=== PATIENT | male | born 1990 | race Caucasian/White ===

== ENCOUNTER 2019-03-05 18:35 | Emergency (ER) | payer BC ==
[~2019-03-05] VITALS: Ht 188 cm; Wt 120.5 kg
[2019-03-05] MEDS ORDERED: LIDOCAINE 2% MDV 20 ML VIAL SC ONE (19:30)
[2019-03-05] MEDS ORDERED: KEFL500C17 PO (19:58)
[2019-03-05 20:12] VITALS: BP 117/70
[2019-03-05] MEDS ORDERED: ADACEL/BOOSTRIX VACCINE (DIPHTH/PERTUSS/ACELL/TETANUS)0.5ML SYR (90715) IM ONE (20:15)
== END 2019-03-05 20:36 | disposition home or self-care (01) ==
LOC: M ED 18:35
DX: S91.114A Laceration without foreign body of right lesser toe(s) without damage to nail, initial encounter (principal); X58.XXXA Exposure to other specified factors, initial encounter; Y92.9 Unspecified place or not applicable; Y93.9 Activity, unspecified; Y99.9 Unspecified external cause status; Z72.0 Tobacco use; Z88.5 Allergy status to narcotic agent

== ENCOUNTER 2020-02-18 02:57 | Emergency (ER) | payer BC, OTHER ==
[~2020-02-18] VITALS: Ht 188 cm; Wt 120.4 kg
[~2020-02-18 02:57] MED LIST: KEFL500C17 PO
[2020-02-18] MEDS ORDERED: NS 1,000 ML IV ONE (03:15)
[2020-02-18] MEDS ORDERED: ISOVUE-370 76% 100ML VIAL As Ordered ONE (03:18)
[2020-02-18 03:20] LABS: BASO # 0.1 10^3/uL (0.0-0.2); BASO % 0.5 % (0.0-1.0); EOS # 0.1 10^3/uL (0.0-0.5); EOS % 0.7 % (0.0-3.0); HEMATOCRIT 40.4 % (42.0-52.0); HEMOGLOBIN 13.9 g/dl (13.5-17.5); LYMPH # 1.3 10^3/uL (1.5-5.0); LYMPH % 14.1 % (24.0-44.0); MEAN CORPUSCULAR HEMOGLOBIN 29.1 pg (27.0-33.0); MEAN CORPUSCULAR HGB CONC 34.4 g/dl (32.0-36.5); MEAN CORPUSCULAR VOLUME 84.5 fl (80.0-96.0); MONO # 0.6 10^3/uL (0.0-0.8); MONO % 6.7 % (0.0-5.0); NEUTROPHILS # 7.2 10^3/uL (1.5-8.5); NEUTROPHILS % 76.6 % (36.0-66.0); PLATELET COUNT, AUTOMATED 275 10^3/uL (150-450); RED BLOOD COUNT 4.78 10^6/uL (4.30-6.10); WHITE BLOOD COUNT 9.4 10^3/uL (4.0-10.0)
[2020-02-18 03:45] LABS: ALT/SGPT 28 U/L (12-78); BILIRUBIN,DIRECT 0.1 MG/DL (0.0-0.2); BILIRUBIN,TOTAL 0.4 MG/DL (0.2-1.0); BLOOD UREA NITROGEN 13 MG/DL (7-18); CALCIUM LEVEL 8.3 MG/DL (8.5-10.1); CARBON DIOXIDE LEVEL 22 MEQ/L (21-32); CHLORIDE LEVEL 107 MEQ/L (98-107); CPK CREATINE PHOSPHOKINASE 560 U/L (39-308); CREATININE FOR GFR 1.28 MG/DL (0.70-1.30); ETHYL ALCOHOL (ETHANOL) 0.264 % (0.000-0.010); GLOMERULAR FILTRATION RATE > 60.0 (>60); GLUCOSE, FASTING 106 MG/DL (70-100); MB/CK RELATIVE INDEX 0.71 (< OR =4); POTASSIUM SERUM 3.8 MEQ/L (3.5-5.1); SODIUM LEVEL 140 MEQ/L (136-145); TOTAL PROTEIN 7.1 GM/DL (6.4-8.2); TROPONIN I < 0.02 NG/ML (< 0.10)
[2020-02-18] MEDS ORDERED: METAL LOCK LOOP XX ONE (04:01)
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
[2020-02-18 04:15] VITALS: BP 117/61
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
--- NOTE | 2020-02-18 06:59 | ECGEPIP ---
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
--- NOTE | 2020-02-22 09:30 | ED PDOC ---
Post-Departure Follow-Up certified letter sent to pt re formal read of ct chest for fu Karuna Berry MD Feb 22, 2020 09:30
== END 2020-02-18 04:50 | disposition left against medical advice (07) ==
LOC: EDBD 02:57 → M ED 02:57
DX: F10.129 Alcohol abuse with intoxication, unspecified (principal); Y90.1 Blood alcohol level of 20-39 mg/100 ml; S00.81XA Abrasion of other part of head, initial encounter; S00.83XA Contusion of other part of head, initial encounter; S80.211A Abrasion, right knee, initial encounter; V49.49XA Driver injured in collision with other motor vehicles in traffic accident, initial encounter; Y92.410 Unspecified street and highway as the place of occurrence of the external cause; Z88.5 Allergy status to narcotic agent; F17.210 Nicotine dependence, cigarettes, uncomplicated
CPT/HCPCS: 36415; 70450; 70486; 71260; 72125; 74177; 80047; 80048; 80076; 82550; 82553; 84484; 85025; 93005; 93041; 94760; 96360; 99285; G0480; Q9967

== ENCOUNTER 2021-07-02 18:12 | Emergency (ER) | payer BC, OTHER ==
[~2021-07-02] VITALS: Ht 185.4 cm; Wt 128.1 kg
[2021-07-02] MEDS ORDERED: diphenhydrAMINE 50MG/ML VIAL (J1200) IV STA (18:18)
[2021-07-02] MEDS ORDERED: methylPREDNISolone 125MG 2ML VIAL IV ONE (18:20)
[2021-07-02] MEDS ORDERED: FAMOTIDINE INJ 20MG/2ML VIAL (S0028 PER 1) IVP ONE (18:20)
[2021-07-02] MEDS ORDERED: NS 1,000 ML IV ONE ×3 (18:20→19:40)
[2021-07-02] MEDS ORDERED: FAMOTIDINE/NS 20 MG/50 ML BAG (S0028) As Ordered ONE (18:20)
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
--- OUTSIDE RECORDS SUMMARY | 2021-07-02 18:21 | CCD ---
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 .................. : DARIA BUSTILLOBY Acct Number.................. : [id number] ROOM. ................. : 112-1 MR Number ................... : [id number] Stay type ............. : O/P Discharge Date......... ... : Admit Date ......... : 12/20/20 Admit Phys .................... : MAGGI Date of ....... : 1990 Family Phys ................... : Phone .................. : [phone] Age ................................ : 30 Film# .................. .:[id number] Sex ................................. : M Unsigned transcriptions are preliminary reports and do not represent a medical or legal document GALLBLADDER [id number] COMPLETE:12/20/20 08:22 KNB [id number] Reason(s): RUQ Pain G ALLBLADDER ULTRASOUND: INDICATION: Right upper quadrant pain. FINDINGS: The liver is mildly heterogeneous in echotexture without discrete mass or biliary duct dilatation demonstrated. Evaluation of the gallbladder does not demonstrate calculi, wall thickening or pericholecystic fluid. The visualized proximal common bile duct is within normal limits, measuring 4 mm. The right kidney measures 10.8 cm in craniocaudal dimension. The kidneys are unremarkable in size and echotexture without cyst, mass or abnormality demonstrated. The pancreas is not well visualized. Limited visualization of the aorta and inferior vena cava does not demonstrate a discrete focal dilatation. IMPRESSION: No acute disease noted on the current study. Electronically Reviewed and Signed By Rigoberto Middleton MD , 12/21/20 15:20, AML Transcribe Initials: SINTIA , Transcribe Date: 12/20/20 16:28, Dictation Date: Copy for: EMERGENCY DEPT via mode Copy for: 710 MED REC Page 1 of 1 Name Value Range Interpretation Code Description Data Steffanie rce(s) Supporting Document(s) ID Date Data Source [id number] 01/05/2021 01:51:00 PM EDT [facility] Name Value Range Interpretation Code Description Data Steffanie rce(s) Supporting Document(s) HEROIN BLOOD [facility] _HEROIN BLOOD_ SEE SEPARATE REFE RENCE LAB REPORT ID Date Data Source [id number] 12/20/2020 07:22:00 AM EDT [facility] 1 OrderSheet [facility] Emergency Department [address] [place] [address] Phone #: ext- [phone] 12/20/2020 07:01 Patient: JOSE CRUZ Sex: M : 1990 Age: 30yWEIGHT:81.6 kg (S) HEIGHT:74 inches (S) BMI:23.1ALLERGIES: Morphine SulfateCHIEF COMPLAINT: abdominal painDIAGNOSIS: VomitingLAB ORDERSOrder Description Priority Entered Acknowledged InitialedCBC w Diff STAT 07:24 12/20/2020 07:29 Lashay Metz Jennifer Jennifer R.NFabian R.N.; Verbal order per; Morenita Wilson MDCMP STAT 07:24 12/20/2020 07:29 Lashay Metz Jenn ifer Jennifer R.NFabian R.N.; Verbal order per; Morenita Wilson MDLipase STAT 07:24 12/20/2020 07:29 Lashay Metz Jennifer Jennifer R.NFabian R.N.; Verbal order per; Morenita Wilson MDLactic Acid STAT 07:39 12/20/2020 07:52 Katie Metz Norma MD; Agnes RDillanLactic Acid STAT 10:46 12/20/2020 11:07 Morenita Kerr MD; flying instructorJose Maria [id number] [facility]H (Not STAT 12:27 12/20/2020 12:35 Sorbero,Symptomatic as Agnes Metz R.NFabianDefined by CDC) R.N.; Verbal order(12/20/2020) (First per; Dayo Wilson) (Hospitalized) (Not ) (NotResident inCongregate CareSetting) (NotEmployed inHealthcare Setting) 2 OrderSheet [facility] Emergency Department [address] [place] [address] Phone #: ext- [phone] 12/20/2020 07:01 Patient: JOSE CRUZ Sex: M : 1990 Age: 30yDIAGNOSTIC STUDY ORDERSOrder Description Priority Entered Acknowledged InitialedUS Gall Bladder STAT 07:39 12/20/2020 Ack'd: 07:52 07:59 Lashay,(Oxygen?(No)) Morenita Wilson MD; Agnes Metz R.N. R.NFabian Reason for Study: RUQ PainMEDICATION/IV/DRIP/FLUID ORDERSOrder Description Priority Entered Acknowledged InitialedNS IV 1000 mL 07:24 12/20/2020 07:30 Lashay,Bolus: : Bolus 1000 Agnes Metz RFabianNFabianmL (X1) R.N.; Verbal order per; Morenita Wilson MDZofran 4 mg IVP X 1 07:24 12/20/2020 07:30 Lashay,dose: 4 mg (NOW Agnes Metz RFabianNFabianx1) R.N.; Verbal order per; Morenita Wilson MDProtonix IV Push 40 07:39 12/20/2020 Ack'd: 07:53 07:59 Lashaymg (in 10 mL NS, Morenita Wilson MD; Agnes Metz R.N.administer over at R.N.least 2 minutes,NOW x1)Zofran IVP 4 mg 07:40 12/20/2020 Ack'd: 07:53 07:58 Katie Metz Norma MD; Agnes MetzNFabian R.N.IV NS 1000 mL 08:28 12/20/2020 Ack'd: 08:40 10:08 DorisBolus : Bolus 1000 Morenita Wilson MD; Agnes Metz RNmL (X1) R.N.Phenergan IV 25 08:35 12/20/2020 08:41 Lashay,mg (NOW x1, HIGH Morenita Wilson MD; Agnes AcostaALERTMEDICATION) Reason for ordering with alerts: Benefits outweigh risks -- 08:35 12/20/2020 Morenita Wilson MDHaldol IVP 2 mg 09:59 12/20/2020 10:08 Eileen(NOW x1) Morenita Wilson MD; Preet RNIV NS 1000 mL 11:29 12/20/2020 11:43 Sorbero,Bolus : Bolus 1000 Morenita Wilson MD; Arthur Acosta 3 OrderSheet [facility] Emergency Department [address] [place] [address] Phone #: ext- [phone] 12/20/2020 07:01 Patient: JOSE CRUZ Sex: M : 1990 Age: 30ymL (X1)GENERAL ORDERSOrder Description Priority Entered Acknowledged Initialed[Electronically signed by Arthur Emanuel R.N. (14:46 12/20/2020)][Electronically signed by Morenita Wilson MD (07:18 12/21/2020)][Electronically locked by Arthur Emanuel R.N. (14:46 12/20/2020)] Name Value Range Interpretation Code Description Data Steffanie rce(s) Supporting Document(s) ID Date Data Source [id number] 12/20/2020 07:22:00 AM EDT [facility] 1 Medication Reconciliation Report [facility] Emergency Department [address] [place] [address] Phone #: zdi- [phone] 12/20/2020 07:01 Patient: JOSE CRUZ Sex: M : 1990 Age: 30yWeight: 81.6 kgHeight/Length: 74 in.BMI: 23.1ALLERGIES: Morphine SulfateThe patient's Home Medications are listed below:NONE.The source(s) of the original Home Medication information:patientThe following Medications were given to the patient in the Emergency Department:NS [IV] IV Fluids bolus 1000 mL wide open, administered: 07:30 12/20/2020Zofran [IVP] IVP 4 mg, administered: 07:15 12/20/2020Zofran [IVP] IVP 4 mg, administered: 07:54 1PROTONIX [IVP] IVP 40 mg diluted in NS 10 mL, administered: 07:56 1PHENERGAN [IVP] IVP 25 mg diluted in NS 10 mL, administered: 08:41 12/20/2020HALDOL [IVP] IVP 2 mg, administered: 10:08 12/20/2020IV NS w/ bolus IV Fluids bolus 1000 mL over 1 hour(s), then 1000 mL/hr, administered: 10:08 12/20/2020NS [IV] IV Fluids bolus 0, then 1500 mL/hr, administered: 11:43 12/20/2020The following Medications were prescribed to the patient:None. Name Value Range Interpretation Code Description Data Steffanie rce(s) Supporting Document(s) ID Date Data Source [id number] 12/20/2020 07:22:00 AM EDT [facility] 1 Medication Administration Record [facility] Emergency Department [address] [place] [address] Phone #: ext- [phone] 12/20/2020 07:01 Patient: JOSE CRUZ Sex: M : 1990 Age: 30yWeight: 81.6 kgHeight/Length: 74 inBMI: 23.1ALLERGIES: Morphine Sulfate Date/Time Medication Administered Medication OrderedStart NS [IV] NS IV 1000 mL Bolus: : Bolus [id number] 12/20/2020 Dose: IV Fluids mL (X1)Agnes Metz R.N. Bolus: 1000 mL wide open---- Dispensed: 1000 mL bagStop Site: #1 left AC10:00 1Dtoñito Oviedo RNGiven ZOFRAN [IVP] (ONDANSETRON HCL) Zofran 4 mg IVP X 1 dose: 4 mg07:15 12/20/2020 Dose: 4 mg IVP (NOW x1)Agnes Metz R.N. Site: #1 left ACGiven PROTONIX [IVP] (PANTOPRAZOLE Protonix IV Push 40 mg (in 10 mL07:56 12/20/2020 SODIUM) NS, administer over at least 2PAgnes guerrier R.N. Dose: 40 mg IVP minutes, NOW x1) In: NS 10 mL Site: #1 left ACGiven ZOFRAN [IVP] (ONDANSETRON HCL) Zofran IVP 4 mg07:54 12/20/2020 Dose: 4 mg IVPPAgnes guerrier R.N. Site: #1 left ACStart IV NS W/ BOLUS IV NS 1000 mL Bolus : Bolus [id number] 12/20/2020 Dose: IV Fluids mL (X1)Eileen Oviedo RN Rate: 1000 mL/hr over 1 hour(s)---- Bolus: 1000 mL over 1 hour(s)Stop Dispensed: 1000 mL bag11:17 12/20/2020 Site: #2 left Arthur Melchor R.N.Given PHENERGAN [IVP] (PROMETHAZINE Phenergan IV 25 mg (NOW x1,08:41 12/20/2020 HCL) HIGH ALERT MEDICATION)Agnes Metz R.N. Dose: 25 mg IVP In: NS 10 mL Site: #1 left ACGiven HALDOL [IVP] (HALOPERIDOL Haldol IVP 2 mg (NOW x1)10:08 12/20/2020 LACTATE)Eileen Oviedo RN Dose: 2 mg IVP Site: #2 left handStart NS [IV] IV NS 1000 mL Bolus : Bolus [id number] 12/20/2020 Dose: IV Fluids mL (X1)Arthur Emanuel R.N. Rate: 1500 mL/hr over 40 minute(s)---- Dispensed: 1000 mL bagStop Site: #1 left AC12:35 12/20/2020Arthur ashby R.N. Name Value Range Interpretation Code Description Data Steffanie rce(s) Supporting Document(s) ID Date Data Source [id number] 12/20/2020 07:22:00 AM EDT [facility] 1 General Instructions [facility] Emergency Department [address] [place] [address] Phone #: ext [phone] 12/20/2020 07:01 Patient: JOSE CRUZ Sex: M : 1990 Age: 30yIntractable vomiting with nausea, dehydration and volume depletion.cyclic vomiting most likely due to marijuana use.(Electronically signed by Morenita Wilson MD 12/21/2020 07:18) Name Value Range Interpretation Code Description Data Steffanie rce(s) Supporting Document(s) ID Date Data Source [id number] 12/20/2020 07:22:00 AM EDT [facility] 1 Clinical Report - Nurses [facility] Emergency Department [address] [place] [address] Phone #: ext- [phone] 12/20/2020 07:01 Patient: JOSE CRUZ Sex: M : 1990 Age: 30yTRIAGEArrived by private vehicle. Historian: patient. Accompanied by friend.Triage time: late entry - 07:04 12/20/2020. Acuity: LEVEL 3.Chief Complaint: ABDOMINAL PAIN and VOMITING.Alert. No acute distress.This started yesterday. ( Pt states yesterday morning he started eating breakfast and vomited, and sincethen the vomiting has continued. Pt states he his vomiting a lot and is unable to keep anything down. Ptalso c/o epigastric abdominal pain.). The patient has had nausea and vomiting. The vomiting hasoccurred numerous times. ( Last BM last night and had diarrhea but "i always have diarrhea").Treatment LEGAL CLERK:(chewable antacids last dose 2 hours ago).SEPSIS SCREEN: SIRS SCREEN NEGATIVE. SEPSIS SCREEN NEGATIVE. No suspected or confirmedsigns of infection present. (07:11 12/20/2020). --07:11 12/20/20 Agnes Metz R.N.07:06 12/20/20. BP: 141/92. MAP: 108. HR: 75. RR: 20. O2 saturation: 100% on room air. Temp: 97.7 F(oral). Pain level now: 04/02. --07:11 12/20/20 Agnes Metz R.N.Weight: 81.6 kg stated. Height/Length: 74 inches Per Patient. BMI: 23.1. --07:03 12/20/20 Agnes Metz R.N.MedicationsNone. --07:08 12/20/20 Agnes Metz R.N.AllergiesMorphine Sulfate.(hives) --07:08 12/20/20 Agnes Metz R.N.PROBLEMS:"cyst in chest". --07:09 12/20/20 Agnes Metz R.N.Medication/allergy information source: the patient. --07:11 12/20/20 Agnes Metz R.N.ADDITIONAL SURGERIES:Jaw surgery. --07:09 12/20/20 Agnes Metz R.N.HistoryPAST MEDICAL HX: Immunizations: up-to-date. 2 Clinical Report - N buster [facility] Emergency Department [address] [place] [address] Phone #: ext- [phone] 12/20/2020 07:01 Patient: JOSE CRUZ Sex: M : 1990 Age: 30y SOCIAL HX: Current every day heavy tobacco smoker (cigarette)- less than 1 pack per day. Occasional alcohol use. No drug use. No recent travel. No known contact with a sick individual. The patient was offered HIV testing but declined. Patient education was provided. The patient was offered hepatitis C testing but declined. Patient education was provided. ( COVID screen negative). The patient has not traveled outside the [place] Infectious disease exposure: No infectious disease exposure. The patient was not exposed to Coronavirus. Mask placed on patient. Patient is not a known carrier of tuberculosis, hepatitis, HIV, MRSA or VRE. Patient is not a known carrier of CRE. SELF HARM ASSESSMENT: Self harm assessment was performed. The patient answered "no" to the question(s) "Do you have thoughts of harming or killing you rself?" and "Do you have a plan for harming or killing yourself?". ABUSE ASSESSMENT: Abuse assessment. The patient had positive responses to the question(s) "Do you feel safe in your home?". Abuse denied. No suspicion of abuse. No report of abuse. NUTRITIONAL RISK ASSESSMENT: The nutritional risk assessment revealed no deficiencies. FUNCTIONAL ASSESSMENT: Functional assessment: no impairments noted. LEARNING NEEDS ASSESSMENT: The learning needs assessment revealed no barriers. FALL RISK ASSESSMENT: Fall risk assessment completed. No risk factors identified. SKIN INTEGRITY ASSESSMENT: Skin integrity risk assessment completed. No skin integrity risk identified. --07:11 12/20/20 Agnes Metz R.N. Interventions Identification band on patient. --07:12/20/20 Agnes Metz R.N.PHYSICAL ASSESSMENTAmbulatory to room.GENERAL / NEURO / PSYCH: Alert. Oriented X 4. Appears in pain.HEENT: Mucous membranes are pink.RESPIRATORY: Respirations not labored. Breath sounds within normal limits.CVS: Capillary refill less than 2 seconds.GI / : The patient has had nausea. Emesis noted. (Pt vomiting heavily in triage). Abdomen soft.Abdominal tenderness in the epigastric area. Bowel sounds within normal limits.SKIN: Skin is warm. Skin is diaphoretic. --07:31 12/20/20 Agnes Metz R.N.NURSING PROGRESS NOTESNIBP monitor and pulse oximeter placed on patient; monitor alarms on. Patient gowned. Reassurancegiven. Three patient identifiers checked. Call light placed in reach. Side rails up x 2. Bed placed inlowest position. Brakes of bed on. Patient ready for evaluation- ED physician notified. --07:10 12/20/20 3 Clinical Report - Nurses [facility] Emergency Department [address] [place] [address] Phone #: ext- [phone] 12/20/2020 07:01 Patient: JOSE CRUZ Sex: M : 1990 Age: 30yPutAgnes boucher R.N.07:15 12/20/2020 Site #1 started via IV in the left antecubital space with an 20g angiocath, with aseptictechnique and good blood return; one attempt. Blood drawn: rainbow set. Labeled in the presence of thepatient and sent to the lab. Saline lock flushed with 10 mL saline. --07:30 12/20/20 Agnes Metz R.N.07:15 12/20/2020 Zofran (Ondansetron HCl) IVP 4 mg given over 2 minute(s) via site #1. Allergies verifiedand confirmed 5 rights. IV patency established. IV site checked: no pain, redness, or swelling. IV flushedthoroughly pre- and post-medication administration. IVP given by RN. Information reviewed with patientincluding reason for taking this medication, signs of allergic reaction and precautions. Verbalizesunderstanding. --07:30 12/20/20 Agnes Metz R.N.07:30 12/20/2020 Started bag #1 1000 mL IV Fluids NS; bolus of 1000 mL wide open via site #1 via IVpump. Allergies verified and confirmed 5 rights. IV patency established. IV site checked: no pain, redness,or swelling. IV flushed thoroughly pre- and post-medication administration. Information reviewed withpatient including reason for taking this medication, signs of allergic reaction and precautions. Verbalizesunderstanding. --07:30 12/20/20 Agnes Metz R.N.07:54 12/20/2020 Zofran (Ondansetron HCl) IVP 4 mg given over 2 minute(s) via site #1. Allergies verifiedand confirmed 5 rights. IV patency established. IV site checked: no pain, redness, or swelling. IV flushedthoroughly pre- and post-medication administration. IVP given by RN. Information reviewed with patientincluding reason for taking this medication, signs of allergic reaction and precautions. Verbalizesunderstanding. --07:58 12/20/20 Agnes Metz R.N.07:56 12/20/2020 PROTONIX (Pantoprazole Sodium) IVP 40 mg given diluted in NS 10mL over 2minute(s) via site #1. Allergies verified and confirmed 5 rights. IV patency established. IV site checked: nopain, redness, or swelling. IV flushed thoroughly pre- and post-medication administration. IVP given by RN.Information reviewed with patient including reas on for taking this medication, signs of allergic reaction andprecautions. Verbalizes understanding. --07:59 12/20/20 Agnes Metz R.N.[facility], mask and radiology director. --07:59 12/20/20 Agnes Metz R.N.( Pt continues to dry heave/vomit heavily and cry out; MD is aware and pt medicated). --07:59 12/20/20Agnes Metz R.N.late entry - 08:12 12/20/20. Patient returned from sonogram by wheelchair with mask and radiology director.--08:42 12/20/20 Agnes Metz R.N.08:41 12/20/2020 PHENERGAN (Promethazine HCl) IVP 25 mg given diluted in NS 10mL over 4 m inute(s)via site #1. Allergies verified and confirmed 5 rights. IV patency established. IV site checked: no pain,redness, or swelling. IV flushed thoroughly pre- and post-medication administration. IVP given by RN.Information reviewed with patient and parent including reason for taking this medication, signs of allergicreaction, precautions and sedative warning. Verbalizes understanding. --08:41 12/20/20 Agnes Metz, 4 Clinical Report - Nurses [facility] Emergency Department [address] [place] [address] Phone #: ext- [phone] 12/20/2020 07:01 Patient: JOSE CRUZ Sex: M : 1990 Age: 30yR.N.08:41 12/20/20. BP: 140/92. HR: 62. RR: 20. O2 saturation: 100%. --08:41 12/20/20 Agnes eMtz R.N.Reassessment acuity: LEVEL 3.Rounding: Pain: assessed pain level. Proximity of possessions / care items: call light within easy reach.Plug ins: assured IV pump plugged in; checked status of equipment in use; located all cords, tubes, andlines to prevent fall hazard. Set expectations: advised patient of rounding protocol timing and asked if theyneeded anything else at this time. The patient has had no adverse reaction.GI / : The patient reports vomiting is still present and currently severe (md guzman). --08:42 12/20/20Agnes Metz R.N.09:11 12/20/20. BP: 128/82. MAP: 97. HR: 64. RR: 16. O2 saturation: 98%. --09:11 12/20/20 [facility] systemJose Maria Recio ER Tech1Reassessment acuity: LEVEL 3.Rounding: Pain: assessed pain level. Proximity of possessions / care items: call light within easy reach.Plug ins: assured IV pump plugged in; checked status of equipment in use; located all cords, tubes, andlines to prevent fall hazard. Set expectations: advised p atient of rounding protocol timing and asked if theyneeded anything else at this time. The patient has had no adverse reaction. ( Pt continues to vomit, MDis aware; Pt still thrashing in bed, angrily yelling out at times. Pt continually bends arm and IV beeps, newIV placed to help with this.).GI / : The patient reports nausea. The patient reports vomiting. --09:23 12/20/20 Agnes Metz R.N.09:22 12/20/20. BP: 146/78. MAP: 100. HR: 70. RR: 18. O2 saturation: 100%. --09:23 12/20/20 Agnes Metz R.N.09:24 12/20/2020 Site #2 started via IV in the left hand with an 20g angiocath, with aseptic technique andgood blood return; one attempt. --09:24 12/20/20 gAnes Metz R.N.07:30 12/20/20. BP: 151/92. MAP: 111. HR: 68. O2 saturation: 100%. --09:46 12/20/20 Agnes Metz R.N.07:45 12/20/20. BP: 148/95. MAP: 112. HR: 69. O2 saturation: 100%. --09:46 12/20/20 Agnes Metz R.N.08:00 12/20/20. BP: 140/98. MAP: 112. HR: 68. O2 saturation: 100%. --09:46 12/20/20 Agnes Metz R.N.09:15 12/20/20. BP: 141/92. MAP: 108. HR: 67. O2 saturation: 100%. --09:46 12/20/20 Agnes Metz, 5 Clinical Report - Nurses [facility] Emergency Department [address] [place] [address] Phone #: ext- [phone] 12/20/2020 07:01 Patient: JOSE CRUZ Sex: M : 1990 Age: 30yR.N.07:50 12/20/2020 Zofran IVP Response: no adverse reaction symptoms are the same. The patient feelsthe same. ED physician notified. --09:47 12/20/20 Agnes Metz R.N.08:30 12/20/2020 Zofran IVP Response: no adverse reaction symptoms are the same. The patient feelsthe same. ED physician notified. --09:48 12/20/20 Agnes Metz R.N.09:30 12/20/2020 PHENERGAN IVP Response: no adverse reaction symptoms are the same. The patientfeels the same. ED physician notified. --09:48 12/20/20 Agnes Metz R.N.09:48 12/20/2020 PROTONIX IVP Response: no adverse reaction. --09:48 12/20/20 Agnes Metz R.N.10:00 12/20/2020 IV Fluids NS via IV site #1 Discontinued: bag #1 completed. Total amount infused: 1000mL. IV patency established. IV site checked: no pain, redness, or swelling. IV flushed thoroughly. --10: Eileen Oviedo, RN10:00 12/20/20. BP: 112/64. MAP: 80. HR: 95. O2 saturation: 95%. --10:03 12/20/20 Agnes Metz R.N.10:08 12/20/2020 HALDOL (Haloperidol Lactate) IVP 2 mg given over 1 hour(s) via site #2. Allergiesverified and confirmed 5 rights. IV patency established. IV site checked: no pain, redness, or swelling. IVflushed thoroughly pre- and post-medication administration. IVP given by RN. Information reviewed withpatient including reason for taking this medication, signs of allergic reaction, precautions and sedativewarning. Verbalizes understanding. --10:08 12/20/20 Eileen Oviedo RN10:08 12/20/2020 Started bag #1 1000 mL IV Fluids IV NS w/ bolus; bolus of 1000 mL over 1 hour(s) thenat 1000 mL/hr over 1 hour(s) via site #2 via IV pump. Allergies verified and confirmed 5 rights. IV patencyestablished. IV site checked: no pain, redness, or swelling. IV flushed thoroughly pre- and post- medicationadministration. Information reviewed with patient including reason for taking this medication, signs ofallergic reaction and precautions. Verbalizes understanding. Completed per protocol. --10:08 12/20/20Eileen Oviedo RN11:17 12/20/2020 IV Fluids IV NS w/ bolus via IV site #2 Discontinued: bag #2 completed. Total amountinfused: 1000 mL. IV patency established. IV site checked: no pain, redness, or swelling. IV flushedthoroughly. --11:17 12/20/20 Arthur Emanuel R.N.11:43 12/20/2020 Started bag #3 1000 mL IV Fluids NS; at 1500 mL/hr over 40 minute(s) via site #1 via IVpump. Allergies verified and confirmed 5 rights. IV patency established. IV site checked: no pain, redness,or swelling. IV flushed thoroughly pre- and post-medication administration. Information reviewed withpatient including reason for taking this medication, signs of allergic reaction and precautions. Verbalizesunderstanding. --11:43 12/20/20 Arthur Emanuel R.N. 6 Clinical Report - Nurses [facility] Emergency Department [address] [place] [address] Phone #: ext- [phone] 12/20/2020 07:01 [id number] Sex[facility] M : 1990 Age: [age]y 12:18 12/20/20. Reassurance given. Reassessment acuity: LEVEL 3. The patient has had no adverse reaction. Overall patient status is the same- he states feels the same. GI / : The patient reports vomiting is still present and currently severe. Abdomen soft and nontender. Bowel sounds within normal limits. SKIN: Skin is warm and dry. Skin color within normal limits. Two patient identifiers checked. Call light placed in reach. Side rails up x 1. Bed placed in lowest position. Brakes of bed on. Patient ready for evaluation- ED physician notified. PLACED IN OBSERVATION STATUS for further evaluation. --12:44 12/20/20 Arthur Emanuel, R.N. 12:35 12/20/2020 IV Fluids NS via IV site #1 Discontinued: bag #3 completed. Total amount infused: 1000 mL. IV patency established. IV site checked: no pain, redness, or swelling. IV flushed thoroughly. --12:35 12/20/20 Arthur Emanuel, R.N.DISPOSITION / DISCHARGE 13:50 12/20/20. Departure time: 13:50 12/20/2020. Condition at departure: improved and stable. The goals identified in the patient's plan of care were met. Fall risk assessment completed. No risk factors identified. Disposition: observation for further evaluation. Transported via wheelchair by nurse. Report was given to a nurse in person and via visit overview. Report included information regarding patient's treatment and allergies, current vital signs and abnormal or pending labs. Report included treatment information regarding medications given or pending; type and amount of IV fluids total volume infused. All questions were answered. Report was acknowledged and care was transferred. (ARVIN). Bed obtained and ready (112). Patient's personal items; items were transported with the patient. --13:57 12/20/20 Arthur Emanuel R.N. 13:10 12/20/20. BP: 130/70. MAP: 90. HR: 80. RR: 16. O2 saturation: 100%. Temp: 98 F. Pain level now: 0. --13:57 12/20/20 Arthur Emanuel R.N.Locked/Released at 12/20/2020 14:46 by Arthur Emanuel R.N. Name Value Range Interpretation Code Description Data Steffanie rce(s) Supporting Document(s) ID Date Data Source [id number] 12/20/2020 07:22:00 AM EDT [facility] 1 Clinical Report - Physicians/Mid Levels [facility] Emergency Department [address] [place] [address] Phone #: ext- [phone] 12/20/2020 07:01 Patient: JOSE CRUZ Sex: M : 1990 Age: 30y Arrived- By private vehicle. Historian- patient. Disposition decision: 11:32 12/20/2020.HISTORY OF PRESENT ILLNESS Chief Complaint: ABDOMINAL PAIN. It is described as located in the epigastric area. This started just prior to arrival and is still present. The patient has had nausea, vomiting and diarrhea. No loss of appetite. (This started yesterday. ( Pt states yesterday morning he started eating breakfast and vomited, and since then the vomiting has continued. Pt states he his vomiting a lot and is unable to keep anything down. Pt also c/o epigastric abdominal pain.). The patient has had nausea and vomiting. The vomiting has occurred numerous times. ( Last BM last night and had diarrhea but "i always have diarrhea"). pt does also admit to smoking marijuana regularly). Similar symptoms previously. Recent medical care: Not recently seen/assessed.REVIEW OF SYSTEMSNo constipation, black stools, hematemesis or difficulty with urination or urination. No pain with urination,urinary frequency or urinary frequency, bloody stools or fever. No headache, sore throat or throat orblurred vision. No chest pain or pain, difficulty breathing or cough. No joint pain or pain, skin rash or rashor chills. No back pain or pain, chills, fever or double vision. No ear pain, runny nose, cough, difficultybreathing or hematuria. No headache, seizure or easy bruising. The patient has had abdominal pain,diarrhea, nausea and vomiting but not had weight loss.PAST HISTORYSee nurses notes. Problems: "cyst in chest". Additional Surgeries: Jaw surgery. Medications: None. Allergies: Morphine Sulfate.(hives).SOCIAL HISTORY 2 Clinical Report - Physicians/Mid Levels [facility] Emergency Department [address] [place] [address] Phone #: ext- [phone] 12/20/2020 07:01 Patient: JOSE CRUZ Sex: M : 1990 Age: 30y Drug use: marijuana.ADDITIONAL NOTESThe nursing notes have been iris hernandes.PHYSICAL EXAMVital Signs: 12/20/2020 13:10 BP: 130/70. MAP: 90. HR: 80. RR: 16. O2 saturation: 100%. Temp: 98 F.Pain level now: 0/10.12/20/2020 10:00 BP: 112/64. MAP: 80. HR: 95. O2 saturation: 95%.12/20/2020 09:22 BP: 146/78. MAP: 100. HR: 70. RR: 18. O2 saturation: 100%.12/20/2020 09:15 BP: 141/92. MAP: 108. HR: 67. O2 saturation: 100%.12/20/2020 09:11 BP: 128/82. MAP: 97. HR: 64. RR: 16. O2 saturation: 98%.12/20/2020 08:41 BP: 140/92. MAP: 108. HR: 62. RR: 20. O2 saturation: 100%.12/20/2020 08:00 BP: 140/98. MAP: 112. HR: 68. O2 saturation: 100%.12/20/2020 07:45 BP: 148/95. MAP: 112. HR: 69. O2 saturation: 100%.12/20/2020 07:30 BP: 151/92. MAP: 111. HR: 68. O2 saturation: 100%.12/20/2020 07:06 BP: 141/92. MAP: 108. HR: 75. RR: 20. O2 saturation: 100% on room air. Temp: 97.7 F.Pain level now: 04/02. Have been reviewed and appear to be correct. Blood pressure normal. Meanarterial pressure- normal. Heart rate normal. Respiratory rate normal. Temperature normal. Oxygensaturation normal.Wang earance: Alert. Oriented X3. Appears to be in pain. (pt is driving).Eyes: Pupils equal, round and reactive to light. Eyes normal inspection.ENT: Nose normal. Dry mucous membranes present. Pharynx normal.Neck: Normal inspection. Neck supple.CVS: Normal heart rate and rhythm. Heart sounds normal. Pulses normal.Respiratory: No respiratory distress. Painless inspiration. Breath sounds normal. Chest nontender.Abdomen: Soft. Mild tenderness in the epigastric area.Back: Normal inspection. No CVA tenderness.Skin: Skin warm and dry. Normal skin color. No rash. Normal skin turgor.Extremities: Extremities exhibit normal ROM. No lower extremity edema.Neuro: Oriented X 3. No motor deficit. No sensory deficit.LABS, X-RAYS, AND EKGLaboratory Tests: Lactic Acid: (AARON: 12/20/2020 10:55) ( MsgRcvd 12/20/2020 11:14) Final results Test Result Flag Units (Reference) LACTIC ACID 3.1 H MMOL/L (0.2 - 2.2) Lactic Acid: (AARON: 12/20/2020 07:15) ( MsgRcvd 12/20/2020 07:49) Final results Test Result Flag Units (Reference) LACTIC ACID 3.4 H MMOL/L (0.2 - 2.2) US Gall Bladder: (AARON: 12/20/2020 07:39) ( MsgRcvd 12/20/2020 08:22) In Progress US GALLBLADDER Reason(s): RUQ Pain 3 Clinical Report - Physicians/Mid Levels [facility] Emergency Department [address] [place] [address] Phone #: ext- [phone] 12/20/2020 07:01 Patient: JOSE CRUZ Sex: M : 1990 Age: 30yTRANSPORTATION: S IV? O2? Oxygen?(No) Room: [facility] w Diff: (AARON: 12/20/2020 07:15) ( MsgRcvd 12/20/2020 07:57) Final results Test Result Flag Units (Reference) CBC W/AUTOMATED DIFF COMPLETE BLOOD COUNT WBC 13.6 H 10/uL (4.2 - 11.0) RBC 5.34 10/uL (4.50 - 6.30) HEMOGLOBIN 15.5 g/dL (14.0 - 16.0) HEMATOCRIT 44.4 % (41.0 - 51.0) MCV 83.1 fL (80.0 - 94.0) MCH 29.0 pg (27.0 - 34.0) MCHC 34.9 g/dL (31.0 - 36.0) RDW 12.1 % (11.5 - 14.8) PLATELETS 349 10/uL (150 - 450) MPV 8.9 fL (7.4 - 10.4) NEUT 86.1 H % (37.0 - 80.0) LYMPH 7.7 L % (25.0 - 40.0) MONO 5.0 % (3.0 - 8.0) EOS 0.1 % (0.0 - 7.0) BASO 0.3 % (0.0 - 2.0) %IG 0.8 H % (0.0 - 0.0) %NRBC 0.0 % (0.0 - 0.0) #NEUT 11.69 H 10/uL (2.00 - 6.90) #LYMPH 1.05 10/uL (0.60 - 3.40) #MONO 0.68 10/uL (0.00 - 0.90) #EOS 0.01 10/uL (0.00 - 0.70) #BASO 0.04 10/uL (0.00 - 0.20) #IG 0.11 H 10/uL (0.00 - 0.10) #NRBC 0.00 10/uL (0.00 - 0.00) MANUAL DIFF NOT INDICATED RBC MORPH NOT INDICATEDCMP: (AARON: 12/20/2020 07:15) ( MsgRcvd 12/20/2020 08:05) Final results Test Result Flag Units (Reference) COMPREHENSIVE METABOLIC PANEL COMPREHENSIVE METABOLIC PANEL SODIUM 137 mEq/L (134 - 153) POTASSIUM 4.5 mEq/L (3.6 - 5.0) CHLORIDE 98 mEq/L (98 - 107) CO2 28 MEQ/L (22 - 30) GLUCOSE 125 H MG/DL (70 - 99) BUN 10 MG/DL (7 - 21) CREATININE 1.3 MG/DL (0.7 - 1.5) BUN/CREAT 8 (8 - 27) TOTAL PROTEIN 7.3 G/DL (6.3 - 8.2) ALBUMIN 4.7 G/DL (3.9 - 5.0) GLOBULIN 2.6 GM/DL (2.4 - 3.2) A/G RATIO 1.8 (0.8 - 2.0) CALCIUM 10.6 H MG/DL (8.4 - 10.2) TOTAL BILI <0.7 MG/DL (0.2 - 1.3) ALKALINE PHOS 75 U/L (38 - 126) SGOT/AST 22 U/L (5 - 40) SGPT/ALT 17 U/L (7 - 56) ANION GAP 11.0 mmol/L (8.0 - 16.0) AGE 30 yrs NON-AA GFR >60 mL/min 4 Clinical Report - Physicians/Mid Levels [facility] Emergency Department [address] [place] [address] Phone #: ext- [phone] 12/20/2020 07:01 Patient: JOSE CRUZ Sex: M : 1990 Age: 30y AFR AMER GFR >60 mL/min Male GFR Interprentation 20-49 yrs >60 mL/min Normal 50-59 yrs >56 mL/min Normal 60-69 yrs >49 mL/min Normal 70-79yrs >42 mL/min Normal 80 and above >35 mL/min Normal Female GFR Interpretation 20-39 yrs >60 mL/min Normal 40-49 yrs >58 mL/min Normal 50-59 yrs >51 mL/min Normal 60-69 yrs >45 mL/min Normal 70-79 yrs >39 mL/min Normal 80 and above >32 mL/min Normal Lipase: (AARON: 12/20/2020 07:15) ( MsgRcvd 12/20/2020 08:04) Final results Test Result Flag Units (Reference) LIPASE 22 U/L (13 - 60).PROGRESS AND PROCEDURESCourse of Care: pt is a 30 year old female who presents to the ED for evaluation of his epigastric pain andvomiting. he was hydrated with 2 L NS. He was given zofran, phenergan and phenergan. He was doingvery well initially. then he started having cyclic vomiting again. his labs were not very impressive otherthan his elevated lactic acid. repeat lactic acid at 3.5 hours was still elevated at 3.1. I called and spoke Clary nesbitt. She agreed to admit. Pt comfortable with admission. Patient/family counseled. Disposition: Observation in the Acute Inpatient Unit. Condition: stable.CLINICAL IMPRESSION Intractable vomiting with nausea, dehydration and volume depletion. cyclic vomiting most likely due to marijuana use.(Electronically signed by Morenita Wilson MD 12/21/2020 07:18) Name Value Range Interpretation Code Description Data Steffanie rce(s) Supporting Document(s) ID Date Data Source [id number] 12/21/2020 07:26:00 AM EDT [facility] Name Value Range Interpretation Code Description Data Steffanie rce(s) Supporting Document(s) DRUG SCREEN URINE [facility] URINE DRUG SCREEN Amphetamine [Presence] in Urine by Screen method NEGATIVE NORMAL: N EGATIVE [facility] BARBITURATES NEGATIVE NORMAL: NEGATIVE [facility] BENZO NEGATIVE NORMAL: NEGATIVE [facility] COCAINE PRESUMP POS NORMAL: NEGATIVE [facility] Tetrahydrocannabinol [Presence] in Urine PRESUMP POS NORMAL: NEGATIVE [facility] OPIATES NEGATIVE NORMAL: NEGATIVE [facility] Phencyclidine [Presence] in Urine by Screen method NEGATIVE NOR MAL: NEGATIVE [facility] \\BLDo\\URINE DRUG SCR EEN INTERPRETATION\\BLDx\\ THE CUTOFFF LEVELS FOR DETECTION ARE FOLLOWS: AMPHETAMINES 1000 ng/ml BARBITUARATES 200 ng/ml BENZODIAZEPINES 100 ng/ml THC 50 ng/ml PHENCYCLIDINE 25 ng/ml OPIATES 300 ng/ml COCAINE 300 ng/ml ALL POSITIVES ARE CONSIDERED PRESUMPTIVE POSITIVE CONFIRMATION WILL BE PERFORMED AT PHYSICIAN REQUEST. ID Date Data Source [id number] 12/21/2020 07:13:00 AM EDT [facility] Name Value Range Interpretation Code Description Data [facility](s) Supporting Document(s) [facility] COL[facility] yellow NORMAL: Yellow [facility] CLARITY clear NORMAL: Clear [facility] spital Specific gravity of Urine by Test strip 1.010 1.001 - 1.030 [facility] pH 7 5 - 9 [facility] al Glucose [Mass/volume] in Urine by Test strip NORM NORMAL: Negat [facility] Bilirubin.total [Presence] in Urine by Test strip NEG NORMAL: Negative [facility] Ketones [Presence] in Urine by Test strip NEG NORMAL: Negative [facility] Protein [Mass/volume] in Urine by Test strip NEG NORMAL: Negat [facility] Nitrite [Presence] in Urine by Test strip NEG NORMAL: Negative [facility] BLOOD NEG NORMAL: Negative [facility] Leukocyte esterase [Presence] in Urine by Test strip NEG MORENITA L: Negative [facility] Urobilinogen [Mass/volume] in Urine by Test strip NOR less regan n 1.0 mg/dL [facility] MICROSCOPIC Not Indicate [facility] ID Date Data Source [id number] 12/21/2020 11:51:00 AM EDT [facility] Name Value Range Interpretation Code Description Data Steffanie rce(s) Supporting Document(s) Lipase [Enzymatic activity/volume] in Serum or Plasma 29 U/L 13 - 60 [facility] ID Date Data Source [id number] 12/21/2020 06:44:00 AM EDT [facility] Name Value Range Interpretation Code Description Data Steffanie rce(s) Supporting Document(s) COMPREHENSIVE METABOLIC PANEL [facility] COMPREHENSIVE METABOLIC PANEL Sodium [Moles/volume] in Serum or Plasma 143 mEq/L 134 - 153 [facility] Potassium [Moles/volume] in Serum or Plasma 3.9 mEq/L 3.6 - 5.0 [facility] Chloride [Moles/volume] in Serum or Plasma 111 mEq/L 98 - 107 H [facility] Carbon dioxide, total [Moles/volume] in Serum or Plasma 26 MEQ/L 22 - 30 [facility] Glucose [Mass/volume] in Serum or Plasma 98 MG/DL 70 - 99 [facility] BUN 9 MG/DL 7 - 21 [facility] Creatinine [Mass/volume] in Serum or Plasma 1.3 MG/DL 0.7 - 1.5 [facility] BUN/CREAT 7 8 - 27 L [facility] Protein [Mass/volume] in Serum or Plasma 5.6 G/DL 6.3 - 8.2 L [facility] Albumin [Mass/volume] in Serum or Plasma 3.6 G/DL 3.9 - 5.0 L [facility] Globulin [Mass/volume] in Serum by calculation 2.0 GM/DL 2.4 - 3.2 L [facility] A/G RATIO 1.8 0.8 - 2.0 [facility] Calcium [Mass/volume] in Serum or Plasma 8.8 MG/DL 8.4 - 10.2 [facility] Bilirubin.total [Mass/volume] in Serum or Plasma <0.7 MG/DL 0.2 - 1.3 [facility] Alkaline phosphatase [Enzymatic activity/volume] in Serum or Plasma 56 U/L 38 - 126 [facility] Aspartate aminotransferase [Enzymatic activity/volume] in Serum or Plasma 13 U/L 5 - 40 [facility] Alanine aminotransferase [Enzymatic activity/volume] in Seru m or Plasma 12 U/L 7 - 56 [facility] Anion gap 3 in Serum or Plasma 6.0 mmol/L 8.0 - 16.0 L [facility]GE 30 [facility] >60 mL/min [facility] ital AFR AMER GFR >60 mL/min [facility] Ho spital Male GFR In terprentation 20-49 yrs >60 mL/min Normal 50-59 yrs >56 mL/min Normal 60-69 yrs >49 mL/min Normal 70-79yrs >42 mL/min Normal 80 and above >35 mL/min Normal Female GFR Interpretation 20-39 yrs >60 mL/min Normal 40-49 yrs >58 mL/min Normal 50-59 yrs >51 mL/min Normal 60-69 yrs >45 mL/min Normal 70-79 yrs >39 mL/min Normal 80 and above >32 mL/min Normal ID Date Data Source [id number] 12/21/2020 06:29:00 AM EDT [facility] Name Value Range Interpretation Code Description Data Steffanie rce(s) Supporting Document(s) CBC W/AUTOMATED DIFF [facility] COMPLETE BLOOD COUNT Leukocytes [#/volume] in Blood by Automated count 9.1 10^3/uL 4.2 - 1 1.0 [facility] Erythrocytes [#/volume] in Blood by Automated count 4.49 10^6/uL 4. 50 - 6.30 L [facility] Hemoglobin [Mass/volume] in Blood 13.2 g/dL 14.0 - 16.0 L [facility] Hematocrit [Volume Fraction] of Blood by Automated count 38.1 % 4 1.0 - 51.0 L [facility] Erythrocyte mean corpuscular volume [Entitic volume] by Auto mated count 84.9 fL 80.0 - 94.0 [facility] Erythrocyte mean corpuscular hemoglobin [Entitic mass] by Automated count 29.4 pg 27.0 - 34.0 [facility] Erythrocyte mean corpuscular hemoglobin concentration [Mass/volume] by Automated count 34.6 g/dL 31.0 - 36.0 [facility] Erythrocyte distribution width [Ratio] by Automated count 12.3 % 11.5 - 14.8 [facility] Platelets [#/volume] in Blood by Automated count 244 10^3/uL 150 - 45 0 [facility] Platelet mean volume [Entitic volume] in Blood by Automated count 8.6 fL 7.4 - 10.4 [facility] Neutrophils/100 leukocytes in Blood by Automated count 64.6 % 37. 0 - 80.0 [facility] Lymphocytes/100 leukocytes in Blood by Manual count 24.1 % 25.0 - 40.0 L [facility] Monocytes/100 leukocytes in Blood by Automated count 9.1 % 3.0 - 8.0 H [facility] Eosinophils/100 leukocytes in Blood by Automated count 1.1 % 0.0 - 7.0 [facility] Basophils/100 leukocytes in Blood by Automated count 0.4 % 0.0 - 2.0 [facility] %IG 0.7 % 0.0 - 0.0 [facility] %NRBC 0.0 % 0.0 - 0.0 [facility] al Neutrophils [#/volume] in Blood by Automated count 5.90 10^3/uL 2.00 - 6.90 [facility] Lymphocytes [#/volume] in Blood by Automated count 2.20 10^3/uL 0.60 - 3.40 [facility] Monocytes [#/volume] in Blood by Automated count 0.83 10^3/uL 0.00 - 0.90 [facility] Eosinophils [#/volume] in Blood by Automated count 0.10 10^3/uL 0.00 - 0.70 [facility] Basophils [#/volume] in Blood by Automated count 0.04 10^3/uL 0.00 - 0.20 [facility] #IG 0.06 10^3/uL 0.00 - 0.10 [facility] ospital #NRBC 0.00 10^3/uL 0.00 - 0.00 [facility] ospital MANUAL DIFF NOT INDICATED [facility] RBC MORPH NOT INDICATED [facility] spital ID Date Data Source [id number] 12/21/2020 06:23:00 AM EDT [facility] Name Value Range Interpretation Code Description Data Steffanie rce(s) Supporting Document(s) Magnesium [Mass/volume] in Serum or Plasma 1.7 MG/DL 1.7 - 2.2 [facility] ID Date Data Source [id number] 12/20/2020 07:57:00 PM EDT [facility] Name Value Range Interpretation Code Description Data Steffanie rce(s) Supporting Document(s) Lactate [Moles/volume] in Serum or Plasma 1.8 MMOL/L 0.2 - 2.2 [facility] ID Date Data Source [id number] 12/20/2020 03:23:00 PM EDT [facility] Name Value Range Interpretation Code Description Data Steffanie rce(s) Supporting Document(s) Lactate [Moles/volume] in Serum or Plasma 2.3 MMOL/L 0.2 - 2.2 H [facility] ID Date Data Source [id number] 12/20/2020 12:20:00 PM EDT [facility] Name Value Range Interpretation Code Description Data Steffanie rce(s) Supporting Document(s) COVID19 Case rprt NOT DETECTED [facility] This lab was ordered by [facility] and reported by [facility]. ID Date Data Source [id number] 12/20/2020 01:16:00 PM EDT [facility] NOT DETECTEDNOT DETECTED{ PROC EDURAL CONTROL VALID KIT LOT # _[id number] 12/20/20.1315.JNL. KIT EXP DATE _01/26/21 12/20/20.1315.JNL. NORMAL RANGE IS NOT DETECTEDNEGATIVE RESULTS SHOULD BE TREATED PRESUMPTIVE AND, IF INCONSISTENT WITHCLINICAL SIGNS AND SYMPTOMS OR NECESSARY FOR PATIENT MANAGEMENT, SHOULD BETESTED WITH DIFFERENT AUTHORIZED OR CLEARED MOLECULAR TESTS. NEGATIVE RESULTSDO NOT PRECLUDE SARS-CoV-2 INFECTION AND SHOULD NOT BE USED THE SOLE BASISFOR PATIENT MANAGEMENT DECISIONS. Name Value Range Interpretation Code Description Data Steffanie rce(s) Supporting Document(s) ID Date Data Source [id number] 12/20/2020 11:13:00 AM EDT [facility] Name Value Range Interpretation Code Description Data Steffanie rce(s) Supporting Document(s) Lactate [Moles/volume] in Serum or Plasma 3.1 MMOL/L 0.2 - 2.2 H [facility] ID Date Data Source [id number] 12/20/2020 08:05:00 AM EDT [facility] Name Value Range Interpretation Code Description [facility]) COMPREHENSIVE METABOLIC PANEL [facility] COMPREHENSIVE METABOLIC PANEL Sodium [Moles/volume] in Serum or Plasma 137 mEq/L 134 - 153 [facility] Potassium [Moles/volume] in Serum or Plasma 4.5 mEq/L 3.6 - 5.0 [facility] Chloride [Moles/volume] in Serum or Plasma 98 mEq/L 98 - 107 [facility] Carbon dioxide, total [Moles/volume] in Serum or Plasma 28 MEQ/L 22 - 30 [facility] Glucose [Mass/volume] in Serum or Plasma 125 MG/DL 70 - 99 H [facility] BUN 10 MG/DL 7 - 21 [facility] Creatinine [Mass/volume] in Serum or Plasma 1.3 MG/DL 0.7 - 1.5 [facility] BUN/CREAT 8 8 - 27 [facility] Protein [Mass/volume] in Serum or Plasma 7.3 G/DL 6.3 - 8.2 [facility] Albumin [Mass/volume] in Serum or Plasma 4.7 G/DL 3.9 - 5.0 [facility] Globulin [Mass/volume] in Serum by calculation 2.6 GM/DL 2.4 - 3.2 [facility] A/G RATIO 1.8 0.8 - 2.0 [facility] Calcium [Mass/volume] in Serum or Plasma 10.6 MG/DL 8.4 - 10.2 H [facility] Bilirubin.total [Mass/volume] in Serum or Plasma <0.7 MG/DL 0.2 - 1.3 [facility] Alkaline phosphatase [Enzymatic activity/volume] in Serum or Plasma 75 U/L 38 - 126 [facility] Aspartate aminotransferase [Enzymatic activity/volume] in Serum or Plasma 22 U/L 5 - 40 [facility] Alanine aminotransferase [Enzymatic activity/volume] in Seru m or Plasma 17 U/L 7 - 56 [facility] Anion gap 3 in Serum or Plasma 11.0 mmol/L 8.0 - 16.0 [facility] AGE 30 yrs [facility] al NON-AA GFR >60 mL/min [facility] Hosp ital AFR AMER GFR >60 mL/min [facility] Ho spital Male GFR In terprentation 20-49 yrs >60 mL/min Normal 50-59 yrs >56 mL/min Normal 60-69 yrs >49 mL/min Normal 70-79yrs >42 mL/min Normal 80 and above >35 mL/min Normal Female GFR Interpretation 20-39 yrs >60 mL/min Normal 40-49 yrs >58 mL/min Normal 50-59 yrs >51 mL/min Normal 60-69 yrs >45 mL/min Normal 70-79 yrs >39 mL/min Normal 80 and above >32 mL/min Normal ID Date Data Source [id number] 12/20/2020 08:04:00 AM T [facility] Name Value Range Interpretation Code Description Data Steffanie rce(s) Supporting Document(s) Lipase [Enzymatic activity/volume] in Serum or Plasma 22 U/L 13 - 60 [facility] ID Date Data Source [id number] 12/20/2020 07:56:00 AM EDT [facility] Name Value Range Interpretation Code Description Data Steffanie rce(s) Supporting Document(s) CBC W/AUTOMATED DIFF [facility] COMPLETE BLOOD COUNT Leukocytes [#/volume] in Blood by Automated count 13.6 10^3/uL 4.2 - 11.0 H [facility] Erythrocytes [#/volume] in Blood by Automated count 5.34 10^6/uL 4. 50 - 6.30 [facility] Hemoglobin [Mass/volume] in Blood 15.5 g/dL 14.0 - 16.0 [facility] Hematocrit [Volume Fraction] of Blood by Automated count 44.4 % 4 1.0 - 51.0 [facility] Erythrocyte mean corpuscular volume [Entitic volume] by Auto mated count 83.1 fL 80.0 - 94.0 [facility] Erythrocyte mean corpuscular hemoglobin [Entitic mass] by Automated count 29.0 pg 27.0 - 34.0 [facility] Erythrocyte mean corpuscular hemoglobin concentration [Mass/volume] by Automated count 34.9 g/dL 31.0 - 36.0 [facility] Erythrocyte distribution width [Ratio] by Automated count 12.1 % 11.5 - 14.8 [facility] Platelets [#/volume] in Blood by Automated count 349 10^3/uL 150 - 45 0 [facility] Platelet mean volume [Entitic volume] in Blood by Automated count 8.9 fL 7.4 - 10.4 [facility] Neutrophils/100 leukocytes in Blood by Automated count 86.1 % 37. 0 - 80.0 H [facility] Lymphocytes/100 leukocytes in Blood by Manual count 7.7 % 25.0 - 40.0 L [facility] Monocytes/100 leukocytes in Blood by Automated count 5.0 % 3.0 - 8.0 [facility] Eosinophils/100 leukocytes in Blood by Automated count 0.1 % 0.0 - 7.0 [facility] Basophils/100 leukocytes in Blood by Automated count 0.3 % 0.0 - 2.0 [facility] %IG 0.8 % 0.0 - [facility].0 [facility] % 0.0 - 0.0 [facility] al Neutrophils [#/volume] in Blood by Automated count 11.69 10^3/uL 2. 00 - 6.90 H [facility] Lymphocytes [#/volume] in Blood by Automated count 1.05 10^3/uL 0.60 - 3.40 [facility] Monocytes [#/volume] in Blood by Automated count 0.68 10^3/uL 0.00 - 0.90 [facility] Eosinophils [#/volume] in Blood by Automated count 0.01 10^3/uL 0.00 - 0.70 [facility] Basophils [#/volume] in Blood by Automated count 0.04 10^3/uL 0.00 - 0.20 [facility] #IG 0.11 10^3/uL 0.00 - 0.10 H [facility] H ospital #NRBC 0.00 10^3/uL 0.00 - 0.00 [facility] ospital MANUAL DIFF NOT INDICATED [facility] RBC MORPH NOT INDICATED [facility] spital ID Date Data Source [id number] 12/20/2020 07:48:00 AM EDT [facility] Name Value Range Interpretation Code Description Data Steffanie rce(s) Supporting Document(s) Lactate [Moles/volume] in Serum or Plasma 3.4 MMOL/L 0.2 - 2.2 H [facility] Procedure Social History No Information Vital Signs ID Date Data Source UNK Name Value Range Interpretation Code Description Data Source(s) Systolic blood pressure 141 mm[Hg] 141 mm[Hg] [facility] ([facility]) Diastolic blood pressure 90 mm[Hg] 90 mm[Hg] [facility] ([facility]) Heart rate 88 /min 88 /min [facility] ([facility]) Body temperature 97.5 [degF] 97.5 [degF] [facility] ([facility]) Respiratory rate 18 /min 18 /min [facility] ( [facility]) Oxygen saturation in Arterial blood by Pulse oximetry 96 % 96 % [facility] ([facility]) Body weight 282.00 [lb_av] 282.00 [lb_av] [facility] ([facility]) Body weight 127.915 kg 127.915 kg [facility] ([facility]) Body height 74 [in_i] 74 [in_i] [facility] ([facility]) 6'2" Body mass index (BMI) [Ratio] 36.2 kg/m2 36.2 k g/m2 [facility] ([facility]) Body surface area Derived from formula 2.52 m2 2.52 m2 [facility] ([facility]) ID Date Data Source [id number] 01/05/2021 01:51:49 PM EDT [facility] Name Value Range Interpretation Code Description Data Source(s) WEIGHT RECORDED 287.00 pounds 287.00 pounds [facility] Height 74 Inches 074 Inches [facility]
[2021-07-02 18:40] LABS: BASO # 0.2 10^3/uL (0.0-0.2); BASO % 0.4 % (0.0-1.0); EOS # 0.1 10^3/uL (0.0-0.5); EOS % 0.2 % (0.0-3.0); HEMATOCRIT 54.5 % (42.0-52.0); HEMOGLOBIN 18.8 g/dl (13.5-17.5); LYMPH # 2.3 10^3/uL (1.5-5.0); LYMPH % 6.1 % (24.0-44.0); MEAN CORPUSCULAR HEMOGLOBIN 28.6 pg (27.0-33.0); MEAN CORPUSCULAR HGB CONC 34.5 g/dl (32.0-36.5); MONO # 1.9 10^3/uL (0.0-0.8); NEUTROPHILS # 33.1 10^3/uL (1.5-8.5); NEUTROPHILS % 86.9 % (36.0-66.0); PLATELET COUNT, AUTOMATED 404 10^3/uL (150-450); RED BLOOD COUNT 6.57 10^6/uL (4.30-6.10)
--- NOTE | 2021-07-02 19:06 | REP ---
INDICATION: CHEST PAIN. COMPARISON: None. TECHNIQUE: An AP view of the chest was obtained. FINDINGS: Cardiac lead wires are noted. Both lungs are fully expanded. The right lung is currently clear. There is an approximately 8.7 mm nodular density in the left upper lobe. The remainder of the left chest is thought to be clear. Haziness at the left costophrenic angle is thought to be artifactual. No effusions are evident. No definite abnormality of the thoracic cage is appreciated. The heart and great vessels appear normal. IMPRESSION: Apparent nodular density left upper lobe. CT of the chest may be of value to confirm a possible nodule. 2. No acute change is appreciated. <Electronically signed by Ok Dwyer > 07/02/21 [id number]
[2021-07-02 19:15] LABS: ALBUMIN 3.9 GM/DL (3.2-5.2); ALT/SGPT 30 U/L (12-78); BILIRUBIN,DIRECT 0.1 MG/DL (0.0-0.2); BILIRUBIN,TOTAL 0.4 MG/DL (0.2-1.0); BLOOD UREA NITROGEN 19 MG/DL (7-18); CALCIUM LEVEL 9.6 MG/DL (8.5-10.1); CARBON DIOXIDE LEVEL 22 MEQ/L (21-32); CHLORIDE LEVEL 106 MEQ/L (98-107); CREATININE FOR GFR 1.52 MG/DL (0.70-1.30); FREE T4 1.15 NG/DL (0.76-1.46); GLUCOSE, FASTING 154 MG/DL (70-100); LIPASE 68 U/L (73-393); NT-PRO BNP 108 PG/ML (<125); SODIUM LEVEL 138 MEQ/L (136-145); TOTAL PROTEIN 6.9 GM/DL (6.4-8.2)
[2021-07-02 19:27] LABS: WHITE BLOOD COUNT 38.1 10^3/uL (4.0-10.0)
--- OUTSIDE RECORDS SUMMARY | 2021-07-02 19:28 | CCD ---
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 ARE CONSIDERED PRESUMPTIVE POSITIVE CONFIRMATION WILL BE PERFORMED AT PHYSICIAN REQUEST. ID Date Data Source [id number] 12/21/2020 07:13:00 AM EDT [facility] Name Value Range Interpretation Code Description Data [facility](s) Supporting Document(s) [facility] COL[facility] yellow NORMAL: Yellow [facility] CLARITY clear NORMAL: Clear [facility] Specific gravity of Urine by Test strip 1.010 1.001 - 1.030 [facility] pH 7 5 - 9 [facility] al Glucose [Mass/volume] in Urine by Test strip NORM NORMAL: Negat [facility] Bilirubin.total [Presence] in Urine by Test strip NEG NORMAL: Negative [facility] Ketones [Presence] in Urine by Test strip NEG NORMAL: Negative [facility] Protein [Mass/volume] in Urine by Test strip NEG NORMAL: Negat [facility] Nitrite [Presence] in Urine by Test strip NEG NORMAL: Negative [facility] BLOOD NEG NORMAL: Negative [facility] Leukocyte esterase [Presence] in Urine by Test strip NEG MORENITA L: Negative [facility] Urobilinogen [Mass/volume] in Urine by Test strip NOR less regan n 1.0 mg/dL [facility] MICROSCOPIC Not Indicate [facility] ID Date Data Source [id number] 12/21/2020 11:51:00 AM EDT [facility] Name Value Range Interpretation Code Description Data Steffanie rce(s) Supporting Document(s) Lipase [Enzymatic activity/volume] in Serum or Plasma 29 U/L 13 - 60 [facility] ID Date Data Source [id number] 12/21/2020 06:44:00 AM EDT [facility] Name Value Range Interpretation Code Description Data Steffanie rce(s) Supporting Document(s) COMPREHENSIVE METABOLIC PANEL [facility] COMPREHENSIVE METABOLIC PANEL Sodium [Moles/volume] in Serum or Plasma 143 mEq/L 134 - 153 [facility] Potassium [Moles/volume] in Serum or Plasma 3.9 mEq/L 3.6 - 5.0 [facility] Chloride [Moles/volume] in Serum or Plasma 111 mEq/L 98 - 107 H [facility] Carbon dioxide, total [Moles/volume] in Serum or Plasma 26 MEQ/L 22 - 30 [facility] Glucose [Mass/volume] in Serum or Plasma 98 MG/DL 70 - 99 [facility] BUN 9 MG/DL 7 - 21 [facility] Creatinine [Mass/volume] in Serum or Plasma 1.3 MG/DL 0.7 - 1.5 [facility] BUN/CREAT 7 8 - 27 L [facility] Protein [Mass/volume] in Serum or Plasma 5.6 G/DL 6.3 - 8.2 L [facility] Albumin [Mass/volume] in Serum or Plasma 3.6 G/DL 3.9 - 5.0 L [facility] Globulin [Mass/volume] in Serum by calculation 2.0 GM/DL 2.4 - 3.2 L [facility] A/G RATIO 1.8 0.8 - 2.0 [facility] Calcium [Mass/volume] in Serum or Plasma 8.8 MG/DL 8.4 - 10.2 [facility] Bilirubin.total [Mass/volume] in Serum or Plasma <0.7 MG/DL 0.2 - 1.3 [facility] Alkaline phosphatase [Enzymatic activity/volume] in Serum or Plasma 56 U/L 38 - 126 [facility] Aspartate aminotransferase [Enzymatic activity/volume] in Serum or Plasma 13 U/L 5 - 40 [facility] Alanine aminotransferase [Enzymatic activity/volume] in Seru m or Plasma 12 U/L 7 - 56 [facility] Anion gap 3 in Serum or Plasma 6.0 mmol/L 8.0 - 16.0 L [facility]GE 30 [facility] G[facility] >60 mL/min [facility] ital AFR AMER GFR >60 mL/min [facility] Male GFR In terprentation [...] >32 mL/min Normal ID Date Data Source [id number] 12/21/2020 06:29:00 AM EDT [facility] Name Value Range Interpretation Code Description Data Steffanie rce(s) Supporting Document(s) CBC W/AUTOMATED DIFF [facility] COMPLETE BLOOD COUNT Leukocytes [#/volume] in Blood by Automated count 9.1 10^3/uL 4.2 - 1 1.0 [facility] Erythrocytes [#/volume] in Blood by Automated count 4.49 10^6/uL 4. 50 - 6.30 L [facility] Hemoglobin [Mass/volume] in Blood 13.2 g/dL 14.0 - 16.0 L [facility] Hematocrit [Volume Fraction] of Blood by Automated count 38.1 % 4 1.0 - 51.0 L [facility] Erythrocyte mean corpuscular volume [Entitic volume] by Auto mated count 84.9 fL 80.0 - 94.0 [facility] Erythrocyte mean corpuscular hemoglobin [Entitic mass] by Automated count 29.4 pg 27.0 - 34.0 [facility] Erythrocyte mean corpuscular hemoglobin concentration [Mass/volume] by Automated count 34.6 g/dL 31.0 - 36.0 [facility] Erythrocyte distribution width [Ratio] by Automated count 12.3 % 11.5 - 14.8 [facility] Platelets [#/volume] in Blood by Automated count 244 10^3/uL 150 - 45 0 [facility] Platelet mean volume [Entitic volume] in Blood by Automated count 8.6 fL 7.4 - 10.4 [facility] Neutrophils/100 leukocytes in Blood by Automated count 64.6 % 37. 0 - 80.0 [facility] Lymphocytes/100 leukocytes in Blood by Manual count 24.1 % 25.0 - 40.0 L [facility] Monocytes/100 leukocytes in Blood by Automated count 9.1 % 3.0 - 8.0 H [facility] Eosinophils/100 leukocytes in Blood by Automated count 1.1 % 0.0 - 7.0 [facility] Basophils/100 leukocytes in Blood by Automated count 0.4 % 0.0 - 2.0 [facility] %IG 0.7 % 0.0 - 0.0 [facility] %NRBC 0.0 % 0.0 - 0.0 [facility] al Neutrophils [#/volume] in Blood by Automated count 5.90 10^3/uL 2.00 - 6.90 [facility] Lymphocytes [#/volume] in Blood by Automated count 2.20 10^3/uL 0.60 - 3.40 [facility] Monocytes [#/volume] in Blood by Automated count 0.83 10^3/uL 0.00 - 0.90 [facility] Eosinophils [#/volume] in Blood by Automated count 0.10 10^3/uL 0.00 - 0.70 [facility] Basophils [#/volume] in Blood by Automated count 0.04 10^3/uL 0.00 - 0.20 [facility] #IG 0.06 10^3/uL 0.00 - 0.10 [facility] #NRBC 0.00 10^3/uL 0.00 - 0.00 [facility] ospital MANUAL DIFF NOT INDICATED [facility] RBC MORPH NOT INDICATED [facility] spital ID Date Data Source [id number] 12/21/2020 06:23:00 AM EDT [facility] Name Value Range Interpretation Code Description Data Steffanie rce(s) Supporting Document(s) Magnesium [Mass/volume] in Serum or Plasma 1.7 MG/DL 1.7 - 2.2 [facility] ID Date Data Source [id number] 12/20/2020 07:57:00 PM EDT [facility] Name Value Range Interpretation Code Description Data Steffanie rce(s) Supporting Document(s) Lactate [Moles/volume] in Serum or Plasma 1.8 MMOL/L 0.2 - 2.2 [facility] ID Date Data Source [id number] 12/20/2020 03:23:00 PM EDT [facility] Name Value Range Interpretation Code Description Data Steffanie rce(s) Supporting Document(s) Lactate [Moles/volume] in Serum or Plasma 2.3 MMOL/L 0.2 - 2.2 H [facility] ID Date Data Source [id number] 12/20/2020 12:20:00 PM EDT [facility] Name Value Range Interpretation Code Description Data Steffanie rce(s) Supporting Document(s) COVID19 Case rprt NOT DETECTED [facility] This lab was ordered by [facility] and reported by [facility]. ID Date Data Source [id number] 12/20/2020 01:16:00 PM EDT [facility] NOT DETECTEDNOT DETECTED{ PROC EDURAL CONTROL VALID [...] rce(s) Supporting Document(s) ID Date Data Source [id number] 12/20/2020 11:13:00 AM EDT [facility] Name Value Range Interpretation Code Description Data Steffanie rce(s) Supporting Document(s) Lactate [Moles/volume] in Serum or Plasma 3.1 MMOL/L 0.2 - 2.2 H [facility] ID Date Data Source [id number] 12/20/2020 08:05:00 AM EDT [facility] Name Value Range Interpretation Code Description Data [place] [facility]) Supporting Document(s) COMPREHENSIVE METABOLIC PANEL [facility] COMPREHENSIVE METABOLIC PANEL Sodium [Moles/volume] in Serum or Plasma 137 mEq/L 134 - 153 [facility] Potassium [Moles/volume] in Serum or Plasma 4.5 mEq/L 3.6 - 5.0 [facility] Chloride [Moles/volume] in Serum or Plasma 98 mEq/L 98 - 107 [facility] Carbon dioxide, total [Moles/volume] in Serum or Plasma 28 MEQ/L 22 - 30 [facility] Glucose [Mass/volume] in Serum or Plasma 125 MG/DL 70 - 99 H [facility] BUN 10 MG/DL 7 - 21 [facility] Creatinine [Mass/volume] in Serum or Plasma 1.3 MG/DL 0.7 - 1.5 [facility] BUN/CREAT 8 8 - 27 [facility] Protein [Mass/volume] in Serum or Plasma 7.3 G/DL 6.3 - 8.2 [facility] Albumin [Mass/volume] in Serum or Plasma 4.7 G/DL 3.9 - 5.0 [facility] Globulin [Mass/volume] in Serum by calculation 2.6 GM/DL 2.4 - 3.2 [facility] A/G RATIO 1.8 0.8 - 2.0 [facility] Calcium [Mass/volume] in Serum or Plasma 10.6 MG/DL 8.4 - 10.2 H [facility] Bilirubin.total [Mass/volume] in Serum or Plasma <0.7 MG/DL 0.2 - 1.3 [facility] Alkaline phosphatase [Enzymatic activity/volume] in Serum or Plasma 75 U/L 38 - 126 [facility] Aspartate aminotransferase [Enzymatic activity/volume] in Serum or Plasma 22 U/L 5 - 40 [facility] Alanine aminotransferase [Enzymatic activity/volume] in Seru m or Plasma 17 U/L 7 - 56 [facility] Anion gap 3 in Serum or Plasma 11.0 mmol/L 8.0 - 16.0 [facility] AGE 30 yrs [facility] Hospit al NON-AA GFR >60 mL/min [facility] ital AFR AMER GFR >60 mL/min [facility] sp[facility] Male GFR In terprentation [...] >32 mL/min Normal ID Date Data Source [id number] 12/20/2020 08:04:00 AM T [facility] Name Value Range Interpretation Code Description Data Steffanie rce(s) Supporting Document(s) Lipase [Enzymatic activity/volume] in Serum or Plasma 22 U/L 13 - 60 [facility] ID Date Data Source [id number] 12/20/2020 07:56:00 AM EDT [facility] Name Value Range Interpretation Code Description Data Steffanie rce(s) Supporting Document(s) CBC W/AUTOMATED DIFF [facility] COMPLETE BLOOD COUNT Leukocytes [#/volume] in Blood by Automated count 13.6 10^3/uL 4.2 - 11.0 H [facility] Erythrocytes [#/volume] in Blood by Automated count 5.34 10^6/uL 4. 50 - 6.30 [facility] Hemoglobin [Mass/volume] in Blood 15.5 g/dL 14.0 - 16.0 [facility] Hematocrit [Volume Fraction] of Blood by Automated count 44.4 % 4 1.0 - 51.0 [facility] Erythrocyte mean corpuscular volume [Entitic volume] by Auto mated count 83.1 fL 80.0 - 94.0 [facility] Erythrocyte mean corpuscular hemoglobin [Entitic mass] by Automated count 29.0 pg 27.0 - 34.0 [facility] Erythrocyte mean corpuscular hemoglobin concentration [Mass/volume] by Automated count 34.9 g/dL 31.0 - 36.0 [facility] Erythrocyte distribution width [Ratio] by Automated count 12.1 % 11.5 - 14.8 [facility] Platelets [#/volume] in Blood by Automated count 349 10^3/uL 150 - 45 0 [facility] Platelet mean volume [Entitic volume] in Blood by Automated count 8.9 fL 7.4 - 10.4 [facility] Neutrophils/100 leukocytes in Blood by Automated count 86.1 % 37. 0 - 80.0 H [facility] Lymphocytes/100 leukocytes in Blood by Manual count 7.7 % 25.0 - 40.0 L [facility] Monocytes/100 leukocytes in Blood by Automated count 5.0 % 3.0 - 8.0 [facility] Eosinophils/100 leukocytes in Blood by Automated count 0.1 % 0.0 - 7.0 [facility] Basophils/100 leukocytes in Blood by Automated count 0.3 % 0.0 - 2.0 [facility] %IG 0.8 % 0.0 - 0.0 [facility] %NRBC 0.0 % 0.0 - 0.0 [facility] al Neutrophils [#/volume] in Blood by Automated count 11.69 10^3/uL 2. 00 - 6.90 H [facility] Lymphocytes [#/volume] in Blood by Automated count 1.05 10^3/uL 0.60 - 3.40 [facility] Monocytes [#/volume] in Blood by Automated count 0.68 10^3/uL 0.00 - 0.90 [facility] Eosinophils [#/volume] in Blood by Automated count 0.01 10^3/uL 0.00 - 0.70 [facility] Basophils [#/volume] in Blood by Automated count 0.04 10^3/uL 0.00 - 0.20 [facility] #IG 0.11 10^3/uL 0.00 - 0.10 H [facility] #NRBC 0.00 10^3/uL 0.00 - 0.00 [facility] ospital MANUAL DIFF NOT INDICATED [facility] RBC MORPH NOT INDICATED [facility] spital ID Date Data Source [id number] 12/20/2020 07:48:00 AM EDT [facility] Name Value Range Interpretation Code Description Data Steffanie rce(s) Supporting Document(s) Lactate [Moles/volume] in Serum or Plasma 3.4 MMOL/L 0.2 - 2.2 H [facility] Procedure Social History No Information Vital Signs ID Date Data Source UNK Name Value Range Interpretation Code Description Data Source(s) Systolic blood pressure 141 mm[Hg] 141 mm[Hg] [facility] ([facility]) Diastolic blood pressure 90 mm[Hg] 90 mm[Hg] [facility] ([facility]) Heart rate 88 /min 88 /min [facility] ([facility]) Body temperature 97.5 [degF] 97.5 [degF] [facility] ([facility]) Respiratory rate 18 /min 18 /min [facility] ( [facility]) Oxygen saturation in Arterial blood by Pulse oximetry 96 % 96 % [facility] ([facility]) Body weight 282.00 [lb_av] 282.00 [lb_av] [facility] ([facility]) Body weight 127.915 kg 127.915 kg [facility] ([facility]) Body height 74 [in_i] 74 [in_i] [facility] ([facility]) 6'2" Body mass index (BMI) [Ratio] 36.2 kg/m2 36.2 k g/m2 [facility] ([facility]) Body surface area Derived from formula 2.52 m2 2.52 m2 [facility] ([facility]) ID Date Data Source [id number] 01/05/2021 01:51:49 PM EDT [facility] Name Value Range Interpretation Code Description Data Source(s) WEIGHT RECORDED 287.00 pounds 287.00 pounds Car [facility] Height 74 Inches 074 Inches [facility]
--- NOTE | 2021-07-02 19:51 | ECGEPIP ---
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
--- NOTE | 2021-07-02 19:52 | ECGEPIP ---
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
[2021-07-02 19:59] LABS: ABG BASE EXCESS -3.4 (-2.0-2.0); ABG HCO3 20.6 MEQ/L (22.0-26.0); ABG O2 SATURATION 97.4 % (95.0-99.0); ABG PARTIAL PRESSURE CO2 34.8 mmHg (35.0-45.0); ABG PARTIAL PRESSURE O2 93.2 mmHg (75.0-100.0); ABG STANDARD HCO3 21.7 MEQ/L (22.0-26.0); ABG TOTAL CO2 21.7 MEQ/L (22.0-29.0); ABG pH (ARTERIAL) 7.391 UNITS (7.350-7.450)
[2021-07-02 20:04] LABS: ACETAMINOPHEN LEVEL < 2.0 UG/ML (10.0-30.0); ETHYL ALCOHOL (ETHANOL) < 0.003 % (0.000-0.010); SALICYLATE LEVEL < 1.7 MG/DL (5.0-30.0)
[2021-07-02 21:20] LABS: AMPHETAMINES LEVEL URINE NEGATIVE (NEGATIVE); BARBITURATES URINE NEGATIVE (NEGATIVE); BENZODIAZEPINES URINE NEGATIVE (NEGATIVE); CANNABINOIDS URINE POSITIVE (NEGATIVE); COCAINE METABOLITE URINE NEGATIVE (NEGATIVE); METHADONE URINE NEGATIVE (NEGATIVE); OPIATES URINE NEGATIVE (NEGATIVE); PHENCYCLIDINE URINE NEGATIVE (NEGATIVE)
[2021-07-02 23:04] LABS: BASO % 0.2 % (0.0-1.0); EOS % 0.1 % (0.0-3.0); HEMATOCRIT 48.8 % (42.0-52.0); LYMPH # 0.6 10^3/uL (1.5-5.0); LYMPH % 3.1 % (24.0-44.0); MEAN CORPUSCULAR HEMOGLOBIN 28.5 pg (27.0-33.0); MEAN CORPUSCULAR HGB CONC 33.8 g/dl (32.0-36.5); MEAN CORPUSCULAR VOLUME 84.4 fl (80.0-96.0); MONO # 0.5 10^3/uL (0.0-0.8); MONO % 2.5 % (2.0-8.0); NEUTROPHILS # 17.8 10^3/uL (1.5-8.5); NEUTROPHILS % 93.2 % (36.0-66.0); RED BLOOD COUNT 5.78 10^6/uL (4.30-6.10); WHITE BLOOD COUNT 19.1 10^3/uL (4.0-10.0)
[2021-07-02 23:35] LABS: HEMOGLOBIN 16.5 g/dl (13.5-17.5)
[2021-07-02 23:36] LABS: PLATELET COUNT, AUTOMATED 296 10^3/uL (150-450)
[2021-07-02 23:38] LABS: BLOOD UREA NITROGEN 19 MG/DL (7-18); CALCIUM LEVEL 8.7 MG/DL (8.5-10.1); CARBON DIOXIDE LEVEL 24 MEQ/L (21-32); CHLORIDE LEVEL 109 MEQ/L (98-107); CREATININE FOR GFR 1.38 MG/DL (0.70-1.30); GLOMERULAR FILTRATION RATE > 60.0 (>60); GLUCOSE, FASTING 142 MG/DL (70-100); POTASSIUM SERUM 4.9 MEQ/L (3.5-5.1); SODIUM LEVEL 140 MEQ/L (136-145)
[2021-07-03 00:54] VITALS: BP 138/67
== END 2021-07-03 01:18 | disposition home or self-care (01) ==
LOC: M ED 18:12
DX: T36.0X5A Adverse effect of penicillins, initial encounter (principal); R06.02 Shortness of breath; R11.2 Nausea with vomiting, unspecified; E86.0 Dehydration; R91.8 Other nonspecific abnormal finding of lung field; N17.9 Acute kidney failure, unspecified; Z88.5 Allergy status to narcotic agent; Z79.899 Other long term (current) drug therapy
CPT/HCPCS: 36415; 71045; 80047; 80048; 80076; 80143; 80307; 82077; 82803; 83605; 83690; 83880; 84439; 84443; 84484; 85025; 93005; 93041; 94760; 96361; 96374; 96375; 99285; J1200; J2930